=== PATIENT | female | born 1995 | race African-American/Black ===

== ENCOUNTER 2019-06-12 21:09 | Emergency (ER) | payer OTHER ==
[~2019-06-12] VITALS: Ht 170.2 cm; Wt 61.2 kg
[2019-06-12 21:17] VITALS: BP 121/71
[2019-06-12] MEDS ORDERED: IBUPROFEN 600 MG TABLET PO ONE (21:47)
[2019-06-12] MEDS: IBUPROFEN 600 MG TABLET PO ONE (21:49)
--- NOTE | 2019-06-12 21:50 | NUR ---
PT SIGNED WAIVER FORM AND WAS PICKED UP FOR X.RAY
--- NOTE | 2019-06-12 22:37 | NUR ---
Patient discharged to home in stable condition. Rx and Written and verbal after care instructions given. Patient verbalizes understanding of instruction.
== END 2019-06-12 22:45 | disposition home or self-care (01) ==
LOC: ER 21:16
DX: S30.0XXA Contusion of lower back and pelvis, initial encounter (principal); F10.10 Alcohol abuse, uncomplicated; Y90.9 Presence of alcohol in blood, level not specified; W22.8XXA Striking against or struck by other objects, initial encounter; Y93.23 Activity, snow (alpine) (downhill) skiing, snowboarding, sledding, tobogganing and snow tubing; Y92.89 Other specified places as the place of occurrence of the external cause; Y99.8 Other external cause status
CPT/HCPCS: 72100; 99283; J7060